=== PATIENT | male | born 1960 | race Caucasian/White ===

== ENCOUNTER 2021-02-07 06:59 | Day surgery (SDC) | payer OTHER ==
[~2021-02-07 06:59] MED LIST: CYCLOBENZAPRINE10 MG PO; IBU800 MG PO; MAPAP500 MG PO; OMEPRAZOLE20 MG PO
--- NOTE | 2021-02-07 08:47 | NUR ---
02/07/21 0847 Brenda Thompson 0884 PATIENT ARRIVES TO PACU SLEEPING, AWAKENS WITH VERBAL STIMULI. RESP EVEN AND UNLABORED, NC AT 3 LITERS.
--- NOTE | 2021-02-07 10:20 | NUR ---
PT ALERT, ORIENTED AND HERE FOR HIS FIRST SCOPE. PT SEEMED TO DEAL WITH PREP APPROPRIATELY. ALL QUESTIONS ASKED ANSWERED, PT HAS FRIEND TO ARRIVE FOR DC. PT REQUESTED PRAYER, WILL FOLLOW NEEDED
--- NOTE | 2021-02-08 08:08 | OR ---
[facility] [address] [place], [place] [address] Signed DATE OF OPERATION: 02/07/2021 SURGEON: Nico Charles MD PREOPERATIVE DIAGNOSIS: Screening. POSTOPERATIVE DIAGNOSIS: Single proximal right colon diverticulum. PROCEDURE: Colonoscopy without biopsy. ESTIMATED BLOOD LOSS: None. INDICATIONS: Johnny is a 60-year-old gentleman asked to see me for his initial screening colonoscopy. He has no family history of colon cancer or polyps. He has no lower GI complaints. In the office, I gave him a pamphlet on colonoscopy and he understands the nature of that test. There is risk including, but not limited to gas bloating, crampy abdominal pain, bleeding, perforation requiring surgery, and missed diagnosis. He also understands the need for IV conscious sedation. He had expressed understanding and wished to proceed. PROCEDURE NOTE: Johnny was taken into our endoscopy suite and placed in the left lateral decubitus position. He was given 9 mg of Versed and 150 mcg of fentanyl. A digital rectal exam was performed and he does have moderate induration and fullness to the prostate gland. The adult colonoscope was introduced and advanced under direct visualization of the camera. He did require some extra sedation. Eventually, we made it around and into the cecum itself. We could easily see the appendiceal orifice and the ileocecal valve. At the base of the ileocecal valve, he had a single diverticulum. His prep was quite excellent. We took pictures throughout for photodocumentation. The scope was then slowly withdrawn. We saw no other pathology in the colon other than that single diverticulum at the base of the ileocecal valve. The rectum was unremarkable. Upon retroflexion of scope, he has very minimal standard internal hemorrhoid tissue. After this, the gas was suctioned out and the colonoscope removed. Johnny tolerated the procedure quite well. RECOMMENDATIONS: Electronically Signed By: NICO CHARLES MD 02/08/21 0808 PATIENT NAME: JOHNNY CROWE OPERATIVE REPORT DATE OF : 58 REPORT #: [id number] PHYSICIAN: NICO CHARLES MD PCP: BON SANTIZO REPORT IS CONFIDENTIAL AND NOT TO BE RELEASED WITHOUT AUTHORIZATION [address] [address] Signed Johnny can return in 10 years for a repeat colonoscopy. Nico Charles MD ALB/YULISAL /[id number] cc: MD Bon Godwin PA Copies: NICO CHARLES MD, RANDALL PA ~ Electronically Signed By: NICO CHARLES MD 02/08/21 0808 PATIENT NAME: JOHNNY CROWE OPERATIVE REPORT DATE OF : 58 REPORT #: [id number] PHYSICIAN: NICO CHARLES MD PCP: BON SANTIZO REPORT IS CONFIDENTIAL AND NOT TO BE RELEASED WITHOUT AUTHORIZATION
== END 2021-02-07 09:45 | disposition home or self-care (01) ==
LOC: DS 06:59 → OPS 06:59 → DS 08:15 → OPS 09:45 → DS 03-02 09:45
PROVIDERS: ATTEND Colon & Rectal Surgery
PROC: 0DJD8ZZ Inspection of Lower Intestinal Tract, Via Natural or Artificial Opening Endoscopic (ICD-10-PCS; principal; 2021-02-07 08:15)
DX: Z12.11 Encounter for screening for malignant neoplasm of colon (principal); K57.30 Diverticulosis of large intestine without perforation or abscess without bleeding; I10 Essential (primary) hypertension; Z88.5 Allergy status to narcotic agent; Z87.891 Personal history of nicotine dependence
CPT/HCPCS: 99153; G0500; J2250; J3010; J7121

== ENCOUNTER 2021-08-31 11:48 | Emergency (ER) | payer OTHER ==
[~2021-08-31] VITALS: Ht 170.2 cm; Wt 85.3 kg
--- NOTE | 2021-08-31 12:52 | EKG ---
[facility] [address] [facility] [place], [place] [address] Signed Normal sinus rhythm Normal ECG No previous ECGs available Confirmed by MARY GARCIA DO ([id number]) on 08/31/2021 12:52:18 PM Electronically Signed By: MARY GARCIA DO 08/31/21 1252 PATIENT NAME: OLEG CROWEJg HENDERSONNN Electrocardiogram DATE OF : 58 PHYSICIAN: MARY GARCAI DO REPORT #: [id number] REPORT IS CONFIDENTIAL AND NOT TO BE RELEASED WITHOUT AUTHORIZATION
[2021-08-31] MEDS ORDERED: PREDNISONE20 MG PO (14:20)
== END 2021-08-31 14:30 | disposition home or self-care (01) ==
LOC: ED 11:48
DX: J44.9 Chronic obstructive pulmonary disease, unspecified (principal); E03.9 Hypothyroidism, unspecified; Z87.891 Personal history of nicotine dependence; Z88.5 Allergy status to narcotic agent; Z79.899 Other long term (current) drug therapy
CPT/HCPCS: 71045; 80048; 83880; 84484; 85025; 93005; 93010; 94640; 94664; 99285-25; J7512

== ENCOUNTER 2023-01-11 10:19 | Emergency (ER) | payer OTHER ==
[~2023-01-11] VITALS: Ht 170.2 cm; Wt 85.3 kg
[~2023-01-11 10:19] MED LIST changes: +PREDNISONE20 MG PO
[2023-01-11] MEDS ORDERED: FLONASE ALLERG9.9 ML NAS (13:00)
[2023-01-11] MEDS ORDERED: ONDANSETRON ODT8 MG PO (13:00)
[2023-01-11] MEDS ORDERED: CLARITIN10 MG PO (13:00)
[2023-01-11] MEDS ORDERED: VENTOLIN HFA18 GM INH (13:00)
[2023-01-11 14:19] VITALS: BP 162/68
--- NOTE | 2023-01-11 18:46 | EKG ---
[facility] [address] [facility] [place] [address] Signed Normal sinus rhythm Normal ECG When compared with ECG of 31-AUG-2021 11:55, T wave inversion no longer evident in Inferior leads Confirmed by MAYELA KAUR MD ([id number]) on 01/11/2023 6:46:27 PM Electronically Signed By: MAYELA KAUR MD 01/11/23 1846 PATIENT NAME: JOHNNY CROWE Electrocardiogram DATE OF : 58 PHYSICIAN: MAYELA KAUR MD REPORT #: [id number] REPORT IS CONFIDENTIAL AND NOT TO BE RELEASED WITHOUT AUTHORIZATION
== END 2023-01-11 14:22 | disposition home or self-care (01) ==
LOC: ED 10:19
DX: J30.2 Other seasonal allergic rhinitis (principal); I10 Essential (primary) hypertension; Z87.891 Personal history of nicotine dependence; Z79.899 Other long term (current) drug therapy
CPT/HCPCS: 36415; 71045; 80053; 84484; 85025; 93005; 93010; 94640; 96374; 96375; 96376; 99285-25; J1200; J1790; J2405

== ENCOUNTER 2023-06-07 15:44 | Emergency (ER) | payer OTHER ==
[~2023-06-07] VITALS: Ht 170.2 cm; Wt 77.2 kg
[~2023-06-07 15:44] MED LIST changes: +CLARITIN10 MG PO; +FLONASE ALLERG9.9 ML NAS; +ONDANSETRON ODT8 MG PO; +VENTOLIN HFA18 GM INH
[2023-06-07] MEDS ORDERED: METOPROLOL TART25 MG PO (16:03)
[2023-06-07 16:07] LABS: BASOPHILS 0.9 % (0-2); EOSINOPHILS 0.8 % (0-6); HEMOGLOBIN 14.3 g/dL (12.0-18.0); LYMPHOCYTES 11.3 % (24-44); MCH 34.1 (27-36); MCHC 34.1 g/dl (30-36); MCV 100.1 fl (81-99); MONOCYTES 4.4 % (0-12); NEUTROPHILS 82.6 % (39-80); PLATELET COUNT 382 K/uL (140-440); RDW 13.7 (10.5-15.0)
[2023-06-07 16:19] LABS: ALBUMIN 4.4 g/dL (3.4-5.0); ALBUMIN/GLOBULIN RATIO 1.1 (1.1-2.4); ANION GAP 12.8 (7-21); BILIRUBIN, TOTAL 0.6 ng/dL (0.2-1.0); BUN/CREATININE RATIO 16.09 (6.0-28.6); CALCIUM 9.5 mg/dL (8.5-10.1); CREATININE, SERUM 0.87 mg/dL (0.70-1.30); POTASSIUM 3.8 mmol/L (3.5-5.1); PROTEIN, TOTAL 8.4 g/dL (6.4-8.2)
[2023-06-07] MEDS ORDERED: LISINOPRIL-HCT1 EAC2 PO (16:43)
[2023-06-07] MEDS ORDERED: VENTOLIN HFA18 GM INH (19:25)
[2023-06-07 19:37] VITALS: BP 188/112
--- NOTE | 2023-06-08 05:59 | EKG ---
[facility] [address] [facility] [place], [place] [address] Signed Normal sinus rhythm Normal ECG No previous ECGs available Confirmed by JUANPABLO GAO MD ([id number]) on 06/08/2023 5:59:35 AM Electronically Signed By: JUANPABLO GAO 06/08/23 0559 PATIENT NAME: OLEG CROWEJg HENDERSONNN Electrocardiogram DATE OF : 58 PHYSICIAN: JUANPABLO GAO REPORT #: [id number] REPORT IS CONFIDENTIAL AND NOT TO BE RELEASED WITHOUT AUTHORIZATION
== END 2023-06-07 19:37 | disposition home or self-care (01) ==
LOC: ED 15:44
PROVIDERS: Emergency Medicine
DX: J30.9 Allergic rhinitis, unspecified (principal); R03.0 Elevated blood-pressure reading, without diagnosis of hypertension; J44.9 Chronic obstructive pulmonary disease, unspecified; Z79.51 Long term (current) use of inhaled steroids; Z79.899 Other long term (current) drug therapy; Z88.5 Allergy status to narcotic agent; Z87.891 Personal history of nicotine dependence
CPT/HCPCS: 36415; 71045; 80053; 84484; 85025; 93005; 93010; 94640; 96374; 99285-25; 99406; A9270; C9803; J2405